=== PATIENT | female | born 1950 | race Caucasian/White ===

== ENCOUNTER → 2016-12-15 | Outpatient (CLI) | payer BC ==
--- NOTE | 2016-12-18 10:10 | MM ---
Reason for exam: screening (asymptomatic). Last mammogram was performed 1 year and 1 month ago. History: Patient is postmenopausal. Took hormonal contraceptives for 2 years. Physical Findings: A clinical breast exam by your physician is recommended on an annual basis and results should be correlated with mammographic findings. MG 3D Screening Mammo W/Cad Bilateral CC and MLO view(s) were taken. Prior study comparison: November 05, 2015, bilateral MG 3d screening mammo w/cad. August 14, 2014, bilateral MG screening mammo w CAD. The breast tissue is heterogeneously dense. This may lower the sensitivity of mammography. Benign calcifications bilaterally. No significant changes when compared with prior studies. ASSESSMENT: Benign, BI-RAD 2 RECOMMENDATION: Routine screening mammogram of both breasts in 1 year.
== END | disposition home or self-care (01) ==
LOC: RADMAMWWP 09:59
PROVIDERS: ATTEND Obstetrics & Gynecology
DX: Z12.31 Encounter for screening mammogram for malignant neoplasm of breast (principal)
CPT/HCPCS: 77063; G0202

== ENCOUNTER → 2017-01-16 | Outpatient (CLI) | payer BC ==
--- NOTE | 2017-01-16 15:48 | XR ---
EXAMINATION TYPE: XR chest 2V DATE OF EXAM: 01/16/2017 3:11 PM COMPARISON: NONE HISTORY: Cough TECHNIQUE: Frontal and lateral views of the chest are obtained. FINDINGS: There is no focal air space opacity, pleural effusion, or pneumothorax seen. The cardiac silhouette size is within normal limits. There is a mild spinal curvature. The osseous structures ar e intact. IMPRESSION: No acute cardiopulmonary process.
== END | disposition home or self-care (01) ==
LOC: RADXRMAIN 14:50
PROVIDERS: ATTEND Internal Medicine
DX: R05 Cough (principal)
CPT/HCPCS: 71020

== ENCOUNTER → 2017-06-01 | Outpatient (CLI) | payer BC ==
--- NOTE | 2017-06-05 12:17 | BD ---
EXAMINATION TYPE: MG DEXA axial skeleton. DATE OF EXAM: 06/01/2017 COMPARISON: 01.14.2015 CLINICAL HISTORY: M89.9 DISORDER OF BONE UNSPECIFIED Height: 62 Weight: 158 FRAX RISK QUESTIONS: Alcohol (3 or more units per day): NONE Family History (Parent hip fracture): NO BREAKS KNOWN Glucocorticoids (More than 3mos): NO (Ex: prednisone, prednisolone, methylprednisolone, dexamethasone, and hydrocortisone). History of Fracture in Adulthood: ALL BREAKS UNDER AGE OF 50 Secondary Osteoporosis: NO 1. Type 1 Diabetes: NO 2. Hyperthyroidism: NO 3. Menopause before 45: NO 4. Malnutrition: NO 5. Chronic liver disease: NO Rheumatoid Arthritis: NO Current Tobacco Use: NO RISK FACTORS HISTORY OF: Family History of Osteoporosis: YES HER GRANDMOTHER, UNKNOWN IF HIP BROKEN Active: YES Diet low in dairy products/other sources of calcium: NO Postmenopausal woman: AT AGE 52 Lost more than 2 inches in height since high school: NO Hyperparathyroidism: NO Adrenal Insufficiency: NO MEDICATIONS: Thyroid Medications: YES SYNTHROID How Lon YRS Osteoporosis Medications: YES, UNSURE OF THE NAME How LonYRS Additional Medications: CALCIUM AND VIT D, STATINS FOR CHOLESTEROL, Additional History: NONE TO NOTE EXAM MEASUREMENTS: Bone mineral densitometry was performed using the [employer] System. Bone mineral density as measured about the Lumbar spine is: ----- L1-L4(G/cm2): 1.015 T Score Values are as follows: ----- L1: -2.0 ----- L2: -1.9 ----- L3: -1.5 ----- L4: -0.3 ----- L1-L4: -1.4 Bone mineral density has: Decreased -0.4% since study of: 01.14.2015 Bone mineral density about the R hip (g/cm2): 0.864 Bone mineral density about the L hip (g/cm2): 0.841 T Score values are as follows: -----R Neck: -2.3 -----L Neck: -2.1 -----R Total: -1.1 -----L Total: -1.3 Bone mineral density has: Increased 1.4% since study of: 01.14.2015 FRAX%'S: THERE IS A 11.8% CHANCE OF A MAJOR OSTEOPOROTIC FX AND A 2.2% CHANCE OF A HIP FX.....PROBA BILITY OF FX IN 10 YRS TIME IMPRESSION: Osteopenia (T Score between -2.5 and -1 as noted by T score values There is slightly increased risk of fracture and the patient may be considered for treatment. Re-Screen 2-5 years. FOR BOTH HIPS AND HER LUMBAR SPINE NOTE: T-SCORE=SD OF THE YOUNG ADULT MEAN.
== END | disposition home or self-care (01) ==
LOC: RADBDWWP 09:20
PROVIDERS: ATTEND Internal Medicine
DX: M85.80 Other specified disorders of bone density and structure, unspecified site (principal)
CPT/HCPCS: 77080

== ENCOUNTER → 2017-06-19 | Outpatient (CLI) | payer BC ==
--- NOTE | 2017-06-19 10:03 | US ---
EXAMINATION TYPE: US abdomen APPY DATE OF EXAM: 06/19/2017 COMPARISON: NONE CLINICAL HISTORY: pain. 3 episodes of abdomen and back pain in the past week APPENDIX Is the appendix seen in its entirety from the proximal cecum to distal end: Appendix not seen at thi s time, visualized portions wnl RLQ appear wnl. IMPRESSION: 1. Nondiagnostic exam for appendicitis due to nonvisualization of the appendix.
--- NOTE | 2017-06-19 10:16 | US ---
EXAMINATION TYPE: US abdomen complete DATE OF EXAM: 06/19/2017 COMPARISON: NONE CLINICAL HISTORY: R10.9 abdominal pain. 3 episodes of abdomen and back pain in the past week EXAM MEASUREMENTS: Liver Length: 14.7 cm Gallbladder Wall: 0.2 cm CBD: 0.3 cm Spleen: 7.8 cm Right Kidney: 11.2 x 3.9 x 5.2 cm Left Kidney: 11.1 x 4.7 x 5.6 cm Pancreas: visualized portions wnl, tail limited by overlying midline bowel gas Liver: wnl Gallbladder: wnl Evidence for sonographic Carpio's sign: no CBD: wnl Spleen: visualized portions wnl, limited by overlying bowel gas Right Kidney: wnl Left Kidney: wnl Upper IVC: wnl Abd Aorta: Atherosclerotic changes with no evidence of aneurysm. The liver is homogenous. The intrahepatic portion of the IVC and proximal abdominal aorta are within normal limits. There is no evidence of cholelithiasis. Common bile duct is unremarkable. The visu alized portions of the pancreas are homogenous. The spleen is unremarkable. Kidneys are symmetric a nd free of hydronephrosis. No renal lesions are seen. IMPRESSION: 1. No acute process
== END | disposition home or self-care (01) ==
LOC: RADUSMAIN 09:07
PROVIDERS: ATTEND Internal Medicine Geriatric Medicine
DX: R10.9 Unspecified abdominal pain (principal)
CPT/HCPCS: 76700; 76705

== ENCOUNTER → 2017-07-12 | Outpatient (CLI) | payer BC ==
[2017-07-12 17:37] LABS: Blood Urea Nitrogen 22 mg/dL (7-17); Non-African American GFR(MDRD) 60 (>60 ml/min/1.73 sqM)
--- NOTE | 2017-07-12 19:32 | CT ---
EXAMINATION TYPE: CT abdomen pelvis w con DATE OF EXAM: 07/12/2017 COMPARISON: NONE HISTORY: Generalized abdominal pain x 3 weeks with urinary urgency and pressure. CT DLP: 1396.00 mGycm Automated exposure control for dose reduction was used. TECHNIQUE: Helical acquisition of images was performed from the lung bases through the pelvis. CONTRAST: Performed with Oral Contrast and with IV Contrast, patient injected with 100 mL of Omnipaque 300. FINDINGS: Lung bases are clear of consolidation. There is no pleural effusion. There is a 1 cm cyst in the anterior left lobe of the liver. Bile ducts are not dilated. Gallbladder appears normal. Pancreas appears normal. Spleen has normal size. There is no adrenal mass. Kidneys show satisfactory contrast opacification. There is no hydronephrosi s. Ureters are not dilated. There is no ascites. Bladder distends smoothly. There is no sign of pelvic mass. I see no intestinal wall thickening. There are no dilated loops. Appendix appears normal. There is no retroperitoneal waqas nopathy. I see no bony destructive process. There are small 1 cm umbilical hernia that contains fat. IMPRESSION: NEGATIVE CT SCAN OF ABDOMEN AND PELVIS. SMALL UMBILICAL HERNIA. SMALL HEPATIC CYST. NORMAL APPENDIX.
== END | disposition home or self-care (01) ==
LOC: RADCTMAIN 16:48
PROVIDERS: ATTEND Internal Medicine
DX: K42.9 Umbilical hernia without obstruction or gangrene (principal); K76.89 Other specified diseases of liver
CPT/HCPCS: 82565; 84520; 74177; 36415; Q9967

== ENCOUNTER → 2018-02-19 | Outpatient (CLI) | payer MEDICARE, BC ==
--- NOTE | 2018-02-20 11:04 | MM ---
Reason for exam: screening (asymptomatic). Last mammogram was performed 1 year and 2 months ago. History: Patient is postmenopausal. Took hormonal contraceptives for 2 years. Physical Findings: A clinical breast exam by your physician is recommended on an annual basis and results should be correlated with mammographic findings. MG 3D Screening Mammo W/Cad Bilateral CC and MLO view(s) were taken. Prior study comparison: December 15, 2016, bilateral MG 3d screening mammo w/cad. November 05, 2015, bilateral MG 3d screening mammo w/cad. The breast tissue is heterogeneously dense. This may lower the sensitivity of mammography. There is no discrete abnormality. No significant changes when compared with prior studies. ASSESSMENT: Negative, BI-RAD 1 RECOMMENDATION: Routine screening mammogram of both breasts in 1 year.
== END | disposition home or self-care (01) ==
LOC: RADMAMWWP 16:29
PROVIDERS: ATTEND Obstetrics & Gynecology
DX: Z12.31 Encounter for screening mammogram for malignant neoplasm of breast (principal)
CPT/HCPCS: 77063; 77067

== ENCOUNTER → 2018-08-16 | Outpatient (CLI) | payer MEDICARE, BC ==
--- NOTE | 2018-08-16 14:41 | US ---
EXAMINATION TYPE: US pelvis complete transvag DATE OF EXAM: 08/16/2018 COMPARISON: CT abdomen and pelvis July 12, 2017. CLINICAL HISTORY: Pelvic Pain R10.2. Pelvic pain, debris noted with urination TECHNIQUE: Transvaginal (TV) and Transabdominal (TA) . Transabdominal sonographic images of the pel vis were acquired. Transvaginal sonographic images were medically necessary to better assess the fol lowing anatomy: endometrium and ovaries Date of LMP: unknown EXAM MEASUREMENTS: Uterus: 6.7 x 2.8 x 4.9 cm Endometrial Stripe: 0.2 cm Right Ovary: unable to visualize Left Ovary: unable to visualize 1. Uterus: Anteverted heterogeneous in appearance, Nabothian cysts, calcification posterior body = 0.4cm 2. Endometrium: Trace fluid within nonthickened endometrium canal 3. Right Ovary: Obscured by overlying bowel gas 4. Left Ovary: Obscured by overlying bowel gas 5. Bilateral Adnexa: appears wnl 6. Posterior cul-de-sac: wnl IMPRESSION: No suspicious finding is seen to account for patient's symptoms of pain.
== END | disposition home or self-care (01) ==
LOC: RADUSWWP 13:29
PROVIDERS: ATTEND Internal Medicine
DX: R10.2 Pelvic and perineal pain (principal)
CPT/HCPCS: 76830; 76856

== ENCOUNTER → 2019-02-05 | Outpatient (CLI) | payer MEDICARE, BC | LOC: LABWHC1 15:32 | PROVIDERS: ATTEND Podiatrist Foot & Ankle Surgery | DX: Z01.812 Encounter for preprocedural laboratory examination (principal); R26.2 Difficulty in walking, not elsewhere classified | CPT/HCPCS: 36415; 82565; 84520 ==

== ENCOUNTER → 2019-04-04 | Outpatient (CLI) | payer MEDICARE, BC ==
--- NOTE | 2019-04-08 08:05 | MM ---
Reason for exam: screening (asymptomatic). Last mammogram was performed 1 year and 1 month ago. History: Patient is postmenopausal. Took hormonal contraceptives for 2 years. Physical Findings: A clinical breast exam by your physician is recommended on an annual basis and results should be correlated with mammographic findings. MG 3D Screening Mammo W/Cad Bilateral CC and MLO view(s) were taken. Prior study comparison: February 19, 2018, bilateral MG 3d screening mammo w/cad. December 15, 2016, bilateral MG 3d screening mammo w/cad. The breast tissue is heterogeneously dense. This may lower the sensitivity of mammography. No significant changes when compared with prior studies. ASSESSMENT: Negative, BI-RAD 1 RECOMMENDATION: Routine screening mammogram of both breasts in 1 year.
== END | disposition home or self-care (01) ==
LOC: RADMAMWWP 15:34
PROVIDERS: ATTEND Obstetrics & Gynecology
DX: Z12.31 Encounter for screening mammogram for malignant neoplasm of breast (principal)
CPT/HCPCS: 77063; 77067

== ENCOUNTER → 2019-07-07 | Outpatient (CLI) | payer MEDICARE, BC ==
--- NOTE | 2019-07-07 11:27 | BD ---
EXAMINATION TYPE: Axial Bone Density DATE OF EXAM: 07/07/2019 COMPARISON: 06.01.2017 CLINICAL HISTORY: 69 YR OLD FEMALE...ICD-10 CODE: M81.0 KNOWN OSTEOPOROSIS Height: 62.2 Weight: 152 FRAX RISK QUESTIONS: Family History (Parent hip fracture): UNSURE History of Fracture in Adulthood: YES RISK FACTORS HISTORY OF: HX OF FOOT FX >50 YRS OLD Family History of Osteoporosis: YES, GRANDMOTHER, ? OF HIP FX Active: YES Postmenopausal woman: YES AT AT 54 YRS OLD Hyperparathyroidism: NO Adrenal Insufficiency: NO MEDICATIONS: Thyroid Medications: YES, SYNTHROID, FOR ABOUT 15 YRS Osteoporosis Medications: TRIED IT ONLY, SIDE AFFECTS STOPPED HER FROM TAKING MEDS Additional Medications: CALCIUM AND VIT D Additional History: NOTHING ADDITIONAL TO ADD HERE EXAM MEASUREMENTS: Bone mineral densitometry was performed using the [employer] System. Bone mineral density as measured about the Lumbar spine is: ----- L1-L4(G/cm2): 1.026 T Score Values are as follows: ----- L1: -2.4 ----- L2: -1.5 ----- L3: -1.0 ----- L4: -0.6 ----- L1-L4: -1.3 Bone mineral density has: Increased 2.5% since study of: 06.01.2017 Bone mineral density about the R hip (g/cm2): 0.843 Bone mineral density about the L hip (g/cm2): 0.838 T Score values are as follows: -----R Neck: -2.4 -----L Neck: -2.0 -----R Total: -1.3 -----L Total: -1.3 Bone mineral density has: Decreased -1.5% since study of: 06.01.2017 FRAX%s: THERE IS A 21.1% CHANCE FOR A MAJOR OSTEOPOROTIC FX AND A 4.5% FOR HIP....PROBABILITY FOR FX IN 10 YRS TIME IMPRESSION: Osteopenia (T Score between -2.5 and -1). There is slightly increased risk of fracture and the patient may be considered for treatment. Re-Screen 2-5 years. NOTE: T-SCORE=SD OF THE YOUNG ADULT MEAN.
== END | disposition home or self-care (01) ==
LOC: RADBDWWP 09:12
PROVIDERS: ATTEND Internal Medicine
DX: M85.80 Other specified disorders of bone density and structure, unspecified site (principal)
CPT/HCPCS: 77080

== ENCOUNTER → 2019-07-29 | Outpatient (CLI) | payer MEDICARE, BC ==
--- NOTE | 2019-07-29 15:52 | XR ---
EXAM TYPE: LUMBAR SPINE X RAY SERIES COMPARISON: NONE HISTORY: Pain TECHNIQUE: 3 views are submitted. FINDINGS: Alignment is anatomic. The pedicles are intact. The transverse processes are intact. There is no s pondylolisthesis. There is multilevel degenerative disc disease and facet arthropathy. Multilevel Sc hmorl's nodes noted. IMPRESSION: 1. Multilevel degenerative disc, consider follow-up MRI.
== END | disposition home or self-care (01) ==
LOC: RADXRMAIN 15:29
PROVIDERS: ATTEND Internal Medicine
DX: M51.36 Other intervertebral disc degeneration, lumbar region (principal)
CPT/HCPCS: 72100

== ENCOUNTER → 2019-08-13 | Outpatient (CLI) | payer MEDICARE, BC ==
--- NOTE | 2019-08-13 16:42 | MR ---
EXAMINATION TYPE: MR lumbar spine wo con DATE OF EXAM: 08/13/2019 COMPARISON: Plain film 07/29/2019 HISTORY: Intervertebral disc degeneration, lumbar, lower back pain radiates down right side TECHNIQUE: Multiplanar, multisequence images of the lumbar spine were acquired. L1-L2: Normal disc appearance without desiccation. No herniation, protrusion or disc bulging. No ca nal stenosis is present. Foramina are patent bilaterally. L2-L3: Broad-based disc bulge causes mild anterior mass effect on the thecal sac. No significant cent ral stenosis or foraminal encroachment. There is some mild facet arthropathy. L3-L4: Posterior broad-based disc bulge causes mild anterior mass effect on the thecal sac. There is facet arthropathy with hypertrophy ligamentum flavum. No significant central stenosis or foraminal en croachment. L4-L5: Posterior broad-based disc bulge contacts anterior thecal sac. Circumferential extension of en dplate disc complex results in foraminal encroachment, there is minimal retrolisthesis grade 1 L4-L5. No significant central stenosis. Facet arthropathy changes present with hypertrophic ligamentum flav um causing posterior lateral mass effect on the thecal sac. L5-S1: Normal disc appearance without desiccation. No herniation, protrusion or disc bulging. No ca nal stenosis is present. Foramina are patent bilaterally. Lumbar segments are intact. No paraspinal masses are identified. Conus medullaris has a normal appe arance. There is multilevel spondylosis. Some minimal endplate discogenic marrow signal changes, Schm orl's node formation is present. Loss of disc height signal present L4-5. L5 appears partially sacral ized. IMPRESSION: Degenerative disc disease, facet arthropathy and foraminal encroachment as described.
== END | disposition home or self-care (01) ==
LOC: RADMRIMAIN 15:14
PROVIDERS: ATTEND Internal Medicine
DX: M51.36 Other intervertebral disc degeneration, lumbar region (principal); M46.96 Unspecified inflammatory spondylopathy, lumbar region
CPT/HCPCS: 72148

== ENCOUNTER → 2020-08-23 | Outpatient (CLI) | payer MEDICARE, BC ==
--- NOTE | 2020-08-25 08:59 | MM ---
Reason for exam: screening (asymptomatic). Last mammogram was performed 1 year and 5 months ago. History: Patient is postmenopausal. Took hormonal contraceptives for 2 years. Physical Findings: A clinical breast exam by your physician is recommended on an annual basis and results should be correlated with mammographic findings. MG 3D Screening Mammo W/Cad Bilateral CC and MLO view(s) were taken. XCCL view(s) were taken of the right breast. Prior study comparison: April 04, 2019, bilateral MG 3d screening mammo w/cad. February 19, 2018, bilateral MG 3d screening mammo w/cad. The breast tissue is heterogeneously dense. This may lower the sensitivity of mammography. There is chronic nodularity in the left breast medially. Stable oil cyst calcifications on the right. No significant changes when compared with prior studies. ASSESSMENT: Benign, BI-RAD 2 RECOMMENDATION: Routine screening mammogram of both breasts in 1 year.
== END | disposition home or self-care (01) ==
LOC: RADMAMWWP 13:48
PROVIDERS: ATTEND Obstetrics & Gynecology
DX: Z12.31 Encounter for screening mammogram for malignant neoplasm of breast (principal)
CPT/HCPCS: 77063; 77067

== ENCOUNTER 2021-10-14 18:46 | Emergency (ER) | payer MEDICARE, BC ==
[2021-10-14] MEDS ORDERED: BAMLANIVIMAB (EUA) 700 MG, ETESEVIMAB (EUA) 1,400 MG in SODIUM CHLORIDE 0.9% 100 ML IVPB ONE (21:15)
[2021-10-14] MEDS ORDERED: SODIUM CHLORIDE 0.9% 50 ML IVPB ONE (21:15)
--- NOTE | 2021-10-14 22:30 | ED ---
URI HPI - General Chief Complaint: Upper Respiratory Infection Stated Complaint: Covid+/BAM Time Seen by Provider: 10/14/21 20:19 Source: patient Mode of arrival: ambulatory Limitations: no limitations - History of Present Illness Initial Comments: 71-year-old female patient presented to the emergency department today for monoclonal antibody infusion. She did test positive for COVID-19 at her primary care physician's office 3 days ago. States it is recommended she come in to have antibody infusion. States that she has been having scratchy throat, fatigue, and body aches. Denies any cough or congestion. Denies shortness of breath or chest pain. Denies any vomiting or diarrhea. She did not receive the COVID vaccine. Patient denies any recent rash, fever, chills, abdominal pain, constipation, back pain, numbness, tingling, dizziness, weakness, hematuria, dysuria, urinary urgency, urinary frequency, headache, visual changes, or any other complaints. - Related Data Home Medications Medication Instructions Recorded Confirmed Atorvastatin [Lipitor] 10 mg PO PC-SUPPER 04/07/16 04/12/16 Cholecalciferol [Vitamin D3] 2,000 unit PO DAILY 04/07/16 04/12/16 Ergocalciferol [Vitamin D2] 50,000 unit PO Q7D 04/07/16 04/12/16 Garlic 1 each PO DAILY 04/07/16 04/07/16 Levothyroxine Sodium [Synthroid] 88 mcg PO DAILY 04/07/16 04/12/16 Lysine 500 mg PO DAILY 04/07/16 04/12/16 Multivitamins, Thera [Multivitamin] 1 tab PO DAILY 04/07/16 04/12/16 Turmeric Tab 800 mg PO DAILY 04/07/16 04/12/16 Previous Rx's Medication Instructions Recorded HYDROcodone/APAP 5-325MG [Elkins 1 - 2 tab PO Q4H PRN #20 tab 04/12/16 5-325] HYDROcodone/APAP 5-325MG [Elkins 1 - 2 tab PO Q4H PRN #20 tab 04/12/16 5-325] Allergies Allergy/AdvReac Type Severity Reaction Status Date / Time No Known Allergies Allergy Verified 10/14/21 20:13 Review of Systems ROS Statement: Those systems with pertinent positive or pertinent negative responses have been documented in the HPI. ROS Other: All systems not noted in ROS Statement are negative. Past Medical History Past Medical History: Hyperlipidemia, Skin Disorder, Thyroid Disorder Additional Past Medical History / Comment(s): hx migraines, scrape on left lower leg, covid 10/22 History of Any Multi-Drug Resistant Organisms: None Reported Additional Past Surgical History / Comment(s): krystal great toes ingrown toenails Past Anesthesia/Blood Transfusion Reactions: No Reported Reaction Past Psychological History: Anxiety Smoking Status: Never smoker Past Alcohol Use History: None Reported Past Drug Use History: None Reported - Past Family History Father Family Medical History: Cancer, Deep Vein Thrombosis (DVT) General Exam Limitations: no limitations General appearance: alert, in no apparent distress, other (This is a well- developed, well-nourished adult female in no acute distress.) ENT exam: Present: normal exam, normal oropharynx, mucous membranes moist Respiratory exam: Present: normal lung sounds bilaterally. Absent: respiratory distress, wheezes, rales, rhonchi, stridor Cardiovascular Exam: Present: regular rate, normal rhythm, normal heart sounds. Absent: systolic murmur, diastolic murmur, rubs, gallop, clicks GI/Abdominal exam: Present: soft, normal bowel sounds. Absent: distended, tenderness, guarding, rebound, rigid Neurological exam: Present: alert, oriented X3, CN II-XII intact Psychiatric exam: Present: normal affect, normal mood Skin exam: Present: warm, dry, intact, normal color. Absent: rash Course Vital Signs 10/14/21 10/14/21 20:09 22:50 Temperature 98.6 F 96.3 F L Pulse Rate 70 67 Respiratory 22 16 Rate Blood Pressure 115/78 108/69 O2 Sat by Pulse 97 97 Oximetry Medical Decision Making - Medical Decision Making 71-year-old female patient presents to the emergency department today requesting monoclonal antibody infusion.She reports very mild symptoms but did meet criteria. Tolerated the infusion without difficulty. She was discharged to follow up with her primary care physician for recheck in 1-2 days. Return parameters were discussed in detail and she verbalizes understanding and agrees with this plan. My attending is Dr. Conner. - Lab Data Lab Results 10/14/21 Range/Units 20:30 Coronavirus (PCR) Detected A (Not Detectd) Disposition Clinical Impression: COVID-19 Disposition: HOME SELF-CARE Condition: Good Instructions (If sedation given, give patient instructions): Coronavirus Disease 2019 (COVID-19) Additional Instructions: Tips to help you feel better: -Maintain adequate fluid intake - especially water. -Rest, you are healing your body will require extra sleep. -Eat even if you do not feel like it - broth, jello, toast are fine if you cannot eat full meals. -Take tylenol and motrin alternating (if you have no allergies or have not been instructed to avoid these medications) to help with body aches and fevers. -Obtain over the counter vitamin C, zinc, and vitamin D3. -Take medications as prescribed. Follow-up with your primary care physician for recheck in 1-2 days. Return for any new, worsening, or concerning symptoms. Is patient prescribed a controlled substance at d/c from ED?: No Referrals: Johnnie Pastor MD [Primary Care Provider] - 1-2 days Time of Disposition: 23:10
[2021-10-14 22:51] VITALS: BP 108/69; PULSE 67; RESP 16; TEMP 96.3
== END 2021-10-14 23:37 | disposition home or self-care (01) ==
LOC: EC 18:46
DX: U07.1 COVID-19 (principal); E78.5 Hyperlipidemia, unspecified; E07.9 Disorder of thyroid, unspecified; Z79.899 Other long term (current) drug therapy; Z79.890 Hormone replacement therapy
CPT/HCPCS: 87635; 99283; J3490

== ENCOUNTER → 2021-10-20 | Outpatient (CLI) | payer MEDICARE, BC ==
--- NOTE | 2021-10-20 13:03 | XR ---
Right shoulder HISTORY: M 77.8 3 views of the right shoulder Distal acromion is downturned. Acromioclavicular joint shows arthropathy. Alignment is maintained, kourtney ne mineralization is reduced. Right lung apex as visualized is normal. Joint spaces are maintained. IMPRESSION: Suspect decreased bone mineralization. Consider impingement, shoulder MRI may be of benef it.
== END | disposition home or self-care (01) ==
LOC: RADXRMAIN 11:59
PROVIDERS: ATTEND Internal Medicine
DX: M77.8 Other enthesopathies, not elsewhere classified (principal)

== ENCOUNTER → 2021-10-28 | Outpatient (CLI) | payer MEDICARE, BC ==
--- NOTE | 2021-10-28 12:34 | XR ---
EXAMINATION TYPE: XR chest 2V DATE OF EXAM: 10/28/2021 COMPARISON: Chest x-ray 01/16/2017 HISTORY: J 18.9 TECHNIQUE: Frontal and lateral views of the chest are obtained. FINDINGS: There is no focal air space opacity, pleural effusion, or pneumothorax seen. Minimal patc hy density present at the level of the lingula. The cardiac silhouette size is within normal limits. Aorta is dense. The osseous structures are intact, there is a slight spinal curvature, thoracic spon dylosis is noted. IMPRESSION: May be some atelectasis or scarring at the level of the lingula, correlate, follow-up as indicated
== END | disposition home or self-care (01) ==
LOC: RADXRMAIN 11:47
PROVIDERS: ATTEND Internal Medicine
DX: J18.9 Pneumonia, unspecified organism (principal)
CPT/HCPCS: 71046

== ENCOUNTER → 2022-10-31 | Outpatient (CLI) | payer MEDICARE, BC ==
--- NOTE | 2022-11-01 08:30 | MM ---
Reason for Exam: Screening (asymptomatic). Last screening mammogram was performed 12 month(s) ago. Patient History: Menarche at age 16. First Full-Term at age 27. Postmenopausal. Patient used Hormonal Contraceptives for 2 years. Risk Values: Cassandra 5 year model risk: 1.7%. NCI Lifetime model risk: 5.1%. Prior Study Comparison: 11/05/2015 Bilateral Screening Mammogram, [facility]. 12/15/2016 Bilateral Screening Mammogram, [facility]. 02/19/2018 Bilateral Screening Mammogram, [facility]. 04/04/2019 Bilateral Screening Mammogram, [facility]. 08/23/2020 Bilateral Screening Mammogram, [facility]. 10/04/2021 Bilateral Screening Mammogram, [facility]. Tissue Density: The breast tissue is heterogeneously dense. This may lower the sensitivity of mammography. Findings: Analyzed By CAD. There is no suspicious group of microcalcifications or new suspicious mass in either breast. Overall Assessment: Negative, BI-RAD 1 Management: Screening Mammogram of both breasts in 1 year. A clinical breast exam by your physician is recommended on an annual basis and results should be correlated with mammographic findings. [facility] will attempt to contact patient to return for supplemental views and ultrasound if indicated. Electronically signed and approved by: Christofre Daly DO
== END | disposition home or self-care (01) ==
LOC: RADMAMWWP 13:42
PROVIDERS: ATTEND Obstetrics & Gynecology
DX: Z12.31 Encounter for screening mammogram for malignant neoplasm of breast (principal); Z78.0 Asymptomatic menopausal state
CPT/HCPCS: 77063; 77067

== ENCOUNTER → 2022-12-28 | Outpatient (CLI) | payer MEDICARE, BC ==
--- NOTE | 2022-12-28 15:07 | CT ---
EXAMINATION TYPE: CT chest w con DATE OF EXAM: 12/28/2022 COMPARISON: None HISTORY: cough CT DLP: 173.9 mGycm, Automated exposure control for dose reduction was used. CONTRAST: Performed injected with 100 mL of Isovue 300. TECHNIQUE: Axial images were obtained at 5 mm thick sections. Reconstructed images are reviewed on [employer] computer in the coronal plane. FINDINGS: Portion of the thyroid visualized is normal. No suspicious lung nodules or focal infiltrates are present. Tracheobronchial tree as visualized appe ars normal. No enlarged mediastinal or hilar adenopathy is evident. The ascending aorta diameter at the level o f the main pulmonary artery is 3.0 cm. The main pulmonary artery diameter at the bifurcation is 2.[address] sections are obtained through the upper abdomen. Abdomen is essentially unremarkable. IMPRESSIONS: 1. No suspicious acute changes CT chest.
== END | disposition home or self-care (01) ==
LOC: RADCTMAIN 12:07
PROVIDERS: ATTEND Internal Medicine
DX: J18.9 Pneumonia, unspecified organism (principal)
CPT/HCPCS: 82565; 84520; 71260; 36415; Q9967

== ENCOUNTER → 2023-12-11 | Outpatient (CLI) | payer MEDICARE, BC ==
--- NOTE | 2023-12-11 15:20 | MM ---
Reason for Exam: Screening (asymptomatic). Last mammogram was performed 1 year(s) and 2 month(s) ago. Patient History: Menarche at age 16. First Full-Term at age 27. Postmenopausal. Patient used Hormonal Contraceptives for 2 years. Risk Values: Cassandra 5 year model risk: 1.8%. NCI Lifetime model risk: 4.9%. Prior Study Comparison: 08/23/2020 Bilateral Screening Mammogram, [facility]. 10/04/2021 Bilateral Screening Mammogram, [facility]. 10/31/2022 Bilateral MG 3D screening mammo w/cad, [facility]. Tissue Density: The breasts are heterogeneously dense, which may obscure small masses. Findings: Analyzed By CAD. There is no suspicious group of microcalcifications or new suspicious mass. Overall Assessment: Negative, BI-RAD 1 Management: Screening Mammogram of both breasts in [address] [facility] will attempt to contact patient to return for supplemental views and ultrasound if indicated. Patient should continue monthly self-breast exams. A clinical breast exam by your physician is recommended on an annual basis. This exam should not preclude additional follow-up of suspicious palpable abnormalities. Note on Cassandra scores and lifetime risk: 1. A Cassandra score greater than 3% is considered moderate risk. If this is the case, consider specialist referral to assess eligibility for a risk reducing agent. 2. If overall lifetime risk for the development of breast cancer is 20% or higher, the patient may qualify for future screening with alternating mammogram and breast MRI. Electronically signed and approved by: Christofer Daly DO
--- NOTE | 2023-12-11 19:17 | BD ---
EXAMINATION TYPE: Axial Bone Density DATE OF EXAM: 12/11/2023 CLINICAL HISTORY: 73 years old Female. ICD-10 CODE: M85.851 OSTEOPENIA OF R HIP Height: 62 Weight: 146 FRAX RISK QUESTIONS: Family History (Parent hip fracture): no History of Fracture in Adulthood: no Secondary Osteoporosis: no RISK FACTORS HISTORY OF: Surgery to Spine/Hip(right/left)/Wrist (right/left): no MEDICATIONS: Thyroid Medications: yes Which medication: Levothyroxine How Lon+ years Osteoporosis Medications: no EXAM MEASUREMENTS: Bone mineral densitometry was performed using the [employer] System. Bone mineral density as measured about the Lumbar spine is: ----- L1-L4(G/cm2): 0.945 T Score Values are as follows: ----- L1: -2.4 ----- L2: -2.2 ----- L3: -2.0 ----- L4: -1.2 ----- L1-L4: -2.0 Z Score Values are as follows: ----- L1: -0.8 ----- L2: -0.6 ----- L3: -0.4 ----- L4: 0.4 ----- L1-L4: -0.3 Bone mineral density has: Decreased -0.8% since study of: 10/04/2021 Bone mineral density about the R hip (g/cm2): 0.805 Bone mineral density about the L hip (g/cm2): 0.810 T Score values are as follows: -----R Neck: -2.8 -----L Neck: -2.6 -----R Total: -1.6 -----L Total: -1.6 Z Score values are as follows: -----R Neck: -1.1 -----L Neck: -0.8 -----R Total: -0.1 -----L Total: -0.1 Bone mineral density has: Decreased -0.9% since study of: 10/04/2021 FRAX%s: The graph provided illustrates a 18.0% chance for a major osteoporotic fx and a 5.7% chance f or the hips probability for fx in 10 years time. IMPRESSION: Osteoporosis (T Score less than -2.5). There is increased fracture risk and therapy is usually indicated based on age. Re-Screen 1-2 years. NOTE: T-SCORE=SD OF THE YOUNG ADULT MEAN.
== END | disposition home or self-care (01) ==
LOC: RADMAMWWP 12:13
PROVIDERS: ATTEND Internal Medicine
DX: Z12.31 Encounter for screening mammogram for malignant neoplasm of breast (principal); M81.0 Age-related osteoporosis without current pathological fracture; M85.89 Other specified disorders of bone density and structure, multiple sites; Z78.0 Asymptomatic menopausal state
CPT/HCPCS: 77063; 77067; 77080

== ENCOUNTER → 2024-01-01 | Outpatient (CLI) | payer MEDICARE, BC ==
--- NOTE | 2024-01-01 11:18 | US ---
EXAMINATION TYPE: US carotid duplex BILAT DATE OF EXAM: 01/01/2024 COMPARISON: NONE CLINICAL INDICATION: Female, 73 years old with history of I65.23 OCCLUSION AND STENOSIS OF BILATERAL CAROTID; Stenosis TECHNIQUE: Carotid duplex ultrasound examination. Indirect Doppler criteria was utilized. FINDINGS: EXAM MEASUREMENTS: RIGHT: Peak Systolic Velocity (PSV) cm/sec ----- Right CCA: 76.1 ----- Right ICA: 106 ----- Right ECA: 113 ICA/CCA ratio: 1.4 RIGHT: End Diastole cm/sec ----- Right CCA: 19.7 ----- Right ICA: 34.7 ----- Right ECA: 13.0 LEFT: Peak Systolic Velocity (PSV) cm/sec ----- Left CCA: 92.5 ----- Left ICA: 84.9 ----- Left ECA: 88.2 ICA/CCA ratio: 0.9 LEFT: End Diastole cm/sec ----- Left CCA: 27.4 ----- Left ICA: 29.6 ----- Left ECA: 18.3 VERTEBRALS (direction of flow): Right Vertebral: Antegrade Left Vertebral: Antegrade INTAKE NURSE NOTES: No significant stenosis seen IMPRESSION: No evidence for hemodynamically significant stenosis Criteria for Assigning % of Stenosis / Diameter reduction (Estimation based on the indirect measurements of the internal carotid artery velocities (ICA PSV). 1. Normal (no stenosis)=ICA PSV < 125 cm/s: ratio < 2.0: ICA EDV<40 cm/s. 2. Less than 50% stenosis=ICA PSV < 125 cm/s: ratio < 2.0: ICA EDV<40 cm/s. 3. 50 to 69% stenosis=ICA PSV of 125 to 230 cm/s: ration 2.0 ? 4.0: ICA EDV 40-100 cm/s. 4. Greater than 70% stenosis to near occlusion= ICA PSV > 230 cm/s: ratio > 4.0: ICA EDV > 100 cm/s. 5. Near occlusion= ICA PSV velocities may be low or undetectable: variable ratio and ICA EDV. 6. Total occlusion=unable to detect flow.
== END | disposition home or self-care (01) ==
LOC: RADUSWWP 10:22
PROVIDERS: ATTEND Internal Medicine
DX: I65.23 Occlusion and stenosis of bilateral carotid arteries (principal); M85.851 Other specified disorders of bone density and structure, right thigh; Z12.31 Encounter for screening mammogram for malignant neoplasm of breast
CPT/HCPCS: 93880

== ENCOUNTER → 2024-06-19 | Outpatient (CLI) | payer MEDICARE, BC ==
[2024-06-19 13:49] VITALS: BP 101/64; PULSE 62; RESP 16; TEMP 97.7
[2024-06-19] MEDS: DENOSUMAB 60 MG/ML 1 ML SYRINGE SQ NR (13:52)
== END ==
LOC: PROCWHC3 13:24
PROVIDERS: ATTEND Internal Medicine
DX: M81.0 Age-related osteoporosis without current pathological fracture (principal)
CPT/HCPCS: 96372

== ENCOUNTER 2024-12-18 13:42 | Outpatient (CLI) | payer MEDICARE, BC ==
[2024-12-18 13:59] VITALS: BP 102/69; PULSE 73; RESP 16; TEMP 97.6
[2024-12-18] MEDS: DENOSUMAB 60 MG/ML 1 ML SYRINGE SQ NR (14:00)
== END 2024-12-19 09:25 | disposition home or self-care (01) ==
LOC: PROCWHC3 13:42
PROVIDERS: ATTEND Internal Medicine
DX: M81.0 Age-related osteoporosis without current pathological fracture (principal)
CPT/HCPCS: 96372; J0897

== ENCOUNTER → 2024-12-29 | Outpatient (CLI) | payer MEDICARE, BC ==
--- NOTE | 2024-12-30 07:25 | MM ---
Reason for Exam: Screening (asymptomatic). Last screening mammogram was performed 12 month(s) ago. Patient History: Menarche at age 16. First Full-Term at age 27. Postmenopausal. Patient used Hormonal Contraceptives for 2 years. Risk Values: Cassandra 5 year model risk: 1.8%. NCI Lifetime model risk: 4.6%. Prior Study Comparison: 10/04/2021 Bilateral Screening Mammogram, [facility]. 10/31/2022 Bilateral MG 3D screening mammo w/cad, [facility]. 12/11/2023 Bilateral MG 3D screening mammo w/cad, [facility]. Tissue Density: The breasts are heterogeneously dense, which may obscure small masses. Findings: Analyzed By CAD. There is no suspicious group of microcalcifications or new suspicious mass in either breast. Overall Assessment: Benign, BI-RAD 2 Management: Screening Mammogram of both breasts in 1 year. . Patient should continue monthly self-breast exams. A clinical breast exam by your physician is recommended on an annual basis. This exam should not preclude additional follow-up of suspicious palpable abnormalities. Note on Cassandra scores and lifetime risk: 1. A Cassandra score greater than 3% is considered moderate risk. If this is the case, consider specialist referral to assess eligibility for a risk reducing agent. 2. If overall lifetime risk for the development of breast cancer is 20% or higher, the patient may qualify for future screening with alternating mammogram and breast MRI. [facility], , 12/30/2024 7:22 AM. Electronically signed and approved by: Nino Flaherty M.D. Radiologis
== END | disposition home or self-care (01) ==
LOC: RADMAMWWP 15:37
PROVIDERS: ATTEND Internal Medicine
DX: Z12.31 Encounter for screening mammogram for malignant neoplasm of breast (principal); R92.333 Mammographic heterogeneous density, bilateral breasts; Z78.0 Asymptomatic menopausal state; Z92.0 Personal history of contraception
CPT/HCPCS: 77063; 77067